=== PATIENT | male | born 1955 | race African-American/Black ===

== ENCOUNTER 2019-06-02 17:26 | Inpatient (IN) | payer OTHER ==
[~2019-06-02] VITALS: Ht 180.3 cm; Wt 90.7 kg
[2019-06-02] MEDS ORDERED: SODIUM CHLORIDE 0.9% 1,000 ML IV ONE (18:17)
[2019-06-02] MEDS ORDERED: ONDANSETRON HCL 4MG/2ML INJ IV STA (18:17)
[2019-06-02] MEDS ORDERED: LORAZEPAM 2MG/ML CPJ IV ONE (18:30)
[2019-06-02 19:03] LABS: HEMATOCRIT. 52.2 % (42.0-52.0); HEMOGLOBIN. 16.7 g/dL (14.0-18.0); MEAN CORPUSCULAR VOLUME 87.5 fL (80.0-94.0); MEAN PLATELET VOLUME 8.7 fl (7.4-10.4); PLATELET 128 x1000/uL (130-400); RED BLOOD CELL COUNT 5.97 mill/uL (4.7-6.1); RED CELL DISTRIBUTION WIDTH 15.2 % (11.6-14.6)
[2019-06-02 19:11] LABS: INR 1.2; PARTIAL THROMBOPLASTIN TIME 25.5 sec (23.4-31.0)
[2019-06-02 19:13] LABS: CHLORIDE 106 mEq/L (98-107)
[2019-06-02 19:22] LABS: CREATINE KINASE 504 IU/L (39-308)
[2019-06-02 19:28] LABS: CLARITY URINE CLEAR (CLEAR); COLOR URINE YELLOW (YELLOW); KETONES URINE NEGATIVE (NEGATIVE); LEUKOCYTE ESTERASE URINE NEGATIVE (NEGATIVE); NITRITE URINE NEGATIVE (NEGATIVE); OCCULT BLOOD URINE NEGATIVE (NEGATIVE); PROTEIN URINE 1+ (NEGATIVE); SPECIFIC GRAVITY URINE 1.015 (1.005-1.030)
[2019-06-02] MEDS ORDERED: HYDRALAZINE 20MG/ML VIAL IV ONE (19:30)
[2019-06-02] MEDS ORDERED: TRANEXAMIC ACID 1,000 MG/10 ML IV ONE (19:30)
[2019-06-02] MEDS ORDERED: TRANEXAMIC ACID 1,000 MG in SODIUM CHLORIDE 0.9% 100 ML IV ONE (19:30)
[2019-06-02 20:39] LABS: PLATELET ESTIMATE SLIGHTLY DECREASED
[2019-06-02 21:21] LABS: *AMPHETAMINES SCREEN URINE NEGATIVE (NEGATIVE); *BARBITURATES SCREEN URINE NEGATIVE (NEGATIVE); *BENZODIAZEPINES SCREEN URINE NEGATIVE (NEGATIVE); *COCAINE SCREEN URINE NEGATIVE (NEGATIVE); METHADONE URINE SCREEN NEGATIVE (NEGATIVE)
[2019-06-02 21:22] LABS: CANNABINOID URINE SCREEN NEGATIVE (NEGATIVE); OPIATES URINE SCREEN NEGATIVE (NEGATIVE); PHENCYCLIDINE URINE SCREEN PRESUMTIVE POSITIVE (NEGATIVE)
[2019-06-02] MEDS ORDERED: GADOBENATE DIMEGLUMINE 529 MG/ML 10ML IV ONE (22:32)
[2019-06-03] VITALS (11 sets, daily range): BP systolic 106–129; BP diastolic 64–87
[2019-06-03] MEDS ORDERED: ASPIRIN 325MG EC TABLET PO ONE (01:00)
[2019-06-03] MEDS ORDERED: ENOXAPARIN 100MG/ML SYR SUBCUT ONE (01:15)
[2019-06-03] MEDS ORDERED: CLONIDINE 0.1MG TABLET PO PRN (08:15)
[2019-06-03] MEDS ORDERED: DOCUSATE SODIUM 100MG CAPSULE PO PRN (08:15)
[2019-06-03] MEDS ORDERED: MORPHINE SULFATE 2 MG/ML CPJ (NOT FOR IM USE) IV PRN (08:15)
[2019-06-03] MEDS ORDERED: IPRATROPIUM/ALBUTEROL 0.5-3(2.5)MG/3ML NEB HHN PRN (08:15)
[2019-06-03] MEDS ORDERED: ONDANSETRON HCL 4MG/2ML INJ IV PRN (08:15)
[2019-06-03] MEDS ORDERED: HYDRALAZINE 20MG/ML VIAL IV PRN (08:15)
[2019-06-03] MEDS ORDERED: HYDROCODONE/ACETAMINOPHEN 10/325MG TABLET PO PRN (08:15)
[2019-06-03] MEDS ORDERED: MAGNESIUM/ALUMINUM HYDROXIDE/SIMETHICONE 30ML UDC PO PRN (08:15)
[2019-06-03] MEDS ORDERED: LORAZEPAM 2MG/ML CPJ IV PRN (08:15)
[2019-06-03] MEDS ORDERED: ACETAMINOPHEN 325MG TABLET PO PRN (08:15)
[2019-06-03] MEDS ORDERED: GUAIFENESIN 200MG/10ML SUGAR FREE UDC PO PRN (08:15)
[2019-06-03] MEDS ORDERED: DIPHENHYDRAMINE 50MG/ML VIAL IV PRN (08:15)
[2019-06-03] MEDS ORDERED: ASPIRIN 81MG TABLET PO SCH (09:00)
[2019-06-03 10:04] LABS: T4 FREE 0.88 ng/dL (0.76-1.46)
[2019-06-03] MEDS ORDERED: ENOXAPARIN 30MG/0.3ML SYR SUBCUT SCH (11:30)
[2019-06-03] MEDS: SODIUM CHLORIDE 0.45% 1,000 ML IV SCH ×2 (12:10→20:23)
[2019-06-03] MEDS: SODIUM CHLORIDE 0.9% INJ 3ML FLUSH IVF SCH ×2 (14:00→20:23)
[2019-06-03 16:56] LABS: CREATINE KINASE MB FRACTION 5.8 ng/mL (0.5-3.6)
[2019-06-04] VITALS: BP 108/69
[2019-06-04 00:48] LABS: CREATINE KINASE MB FRACTION 3.5 ng/mL (0.5-3.6)
[2019-06-04 02:00] VITALS: BP 118/81
[2019-06-04 04:00] VITALS: BP 111/76
[2019-06-04 06:00] VITALS: BP 131/78
[2019-06-04 08:00] VITALS: BP 136/100
[2019-06-04] MEDS ORDERED: ENOXAPARIN 40MG/0.4ML SYR SUBCUT SCH (09:00)
[2019-06-04 09:02] LABS: BASOPHILS % 0.1 % (0.0-2.0); EOSINOPHILS % 0.6 % (0.0-5.0); HEMATOCRIT. 39.4 % (42.0-52.0); HEMOGLOBIN. 13.1 g/dL (14.0-18.0); MEAN CORPUSCULAR HEMOGLOBIN 28.9 pg (28.0-32.0); MEAN CORPUSCULAR VOLUME 87.2 fL (80.0-94.0); MEAN PLATELET VOLUME 8.9 fl (7.4-10.4); MONOCYTES % 9.3 % (2.0-8.0); PLATELET 102 x1000/uL (130-400); RED BLOOD CELL COUNT 4.52 mill/uL (4.7-6.1); RED CELL DISTRIBUTION WIDTH 14.9 % (11.6-14.6)
[2019-06-04 09:10] LABS: CHLORIDE 105 mEq/L (98-107)
[2019-06-04 10:00] VITALS: BP 135/91
== END 2019-06-04 17:53 | disposition left against medical advice (07) | DRG 110 ==
LOC: ER 17:26 → EDBEDREQ 23:50 → EDBEDREQTM 23:50 → 5EST 06-03 01:08 → EDBD 06-03 01:08 → EDBEDREQTM 06-03 01:40 → EDBEDREQSVC 06-03 01:40 → EDBEDREQ 06-03 01:40 → ENRESERV 06-03 07:40
PROVIDERS: ADMIT Internal Medicine; ATTEND Internal Medicine
DX: C41.0 Malignant neoplasm of bones of skull and face (principal); I21.4 Non-ST elevation (NSTEMI) myocardial infarction; E87.2 Acidosis; R65.10 Systemic inflammatory response syndrome (SIRS) of non-infectious origin without acute organ dysfunction; E78.5 Hyperlipidemia, unspecified; F16.90 Hallucinogen use, unspecified, uncomplicated; I10 Essential (primary) hypertension
CPT/HCPCS: 36415; 70553; 71045; 80053; 80061; 80305; 80320; 81003; 82550; 82553; 83036; 83605; 83880; 84439; 84443; 84484; 85025; 85379; 93005; 93306; 93970; 96374; 99285; A9577; J1650; J2060; J2405; J7030; J7050; G0480

== ENCOUNTER 2019-09-13 18:03 | Emergency (ER) | payer OTHER ==
[~2019-09-13] VITALS: Ht 182.9 cm; Wt 98.0 kg
[2019-09-13 18:05] VITALS: BP 134/92
== END 2019-09-13 19:14 | disposition left against medical advice (07) ==
LOC: ER 18:03
DX: R07.89 Other chest pain (principal); Z59.0 Homelessness
CPT/HCPCS: 99283

== ENCOUNTER 2019-11-26 15:33 | Emergency (ER) | payer MEDICAID, OTHER ==
[~2019-11-26] VITALS: Ht 177.8 cm; Wt 90.0 kg
[2019-11-26] MEDS ORDERED: NITROGLYCERIN 0.4MG TABLET SL SL PRN (17:30)
[2019-11-26] MEDS ORDERED: ASPIRIN 81MG TABLET PO ONE (17:30)
[2019-11-26 18:00] LABS: HEMATOCRIT. 44.7 % (42.0-52.0); HEMOGLOBIN. 14.9 g/dL (14.0-18.0); MEAN CORPUSCULAR HEMOGLOBIN 28.7 pg (28.0-32.0); MEAN CORPUSCULAR VOLUME 85.9 fL (80.0-94.0); MEAN PLATELET VOLUME 8.2 fl (7.4-10.4); PLATELET 135 x1000/uL (130-400); RED CELL DISTRIBUTION WIDTH 15.5 % (11.6-14.6)
[2019-11-26 18:03] LABS: CHLORIDE 98 mEq/L (98-107)
[2019-11-26 18:07] LABS: ETHANOL BLOOD < 10 mg/dL
[2019-11-26 18:09] LABS: *AMPHETAMINES SCREEN URINE NEGATIVE (NEGATIVE); *BARBITURATES SCREEN URINE NEGATIVE (NEGATIVE); *BENZODIAZEPINES SCREEN URINE NEGATIVE (NEGATIVE); *COCAINE SCREEN URINE NEGATIVE (NEGATIVE)
[2019-11-26 18:10] LABS: CANNABINOID URINE SCREEN NEGATIVE (NEGATIVE); METHADONE URINE SCREEN NEGATIVE (NEGATIVE); OPIATES URINE SCREEN PRESUMTIVE POSITIVE (NEGATIVE); PHENCYCLIDINE URINE SCREEN PRESUMTIVE POSITIVE (NEGATIVE)
[2019-11-26 20:25] LABS: PLATELET ESTIMATE NORMAL
[2019-11-26 20:30] VITALS: BP 107/69
== END 2019-11-26 20:31 | disposition home or self-care (01) ==
LOC: ER 15:33
DX: T40.991A Poisoning by other psychodysleptics [hallucinogens], accidental (unintentional), initial encounter (principal); R07.89 Other chest pain; F17.200 Nicotine dependence, unspecified, uncomplicated; Z85.841 Personal history of malignant neoplasm of brain; Y92.89 Other specified places as the place of occurrence of the external cause
CPT/HCPCS: 36415; 71045; 80053; 80305; 80320; 84484; 85025; 93005; 99285; Z7610; G0480